=== PATIENT | male | born 1980 | race Caucasian/White ===

== ENCOUNTER 2020-02-24 10:18 | Emergency (ER) | payer OTHER ==
[~2020-02-24] VITALS: Ht 185.4 cm; Wt 92.0 kg
--- NOTE | 2020-02-24 11:18 | NUR ---
PERSONAL INJURY LITIGATION PARALEGAL: PT TO ROOM FROM LOBBY
[2020-02-24 11:29] VITALS: BP 137/97
--- NOTE | 2020-02-24 11:31 | NUR ---
PT AMBULATORY TO ROOM 11 W/ C/O DIZZINESS/LIGHTHEADEDNESS THIS AM. PT STATES HE WAS WALKING AND HE STARTED FEELING DIZZY/LIGHTHEADED AND SAT DOWN UNTIL HE FELT BETTER. NASIR LOC. PT STATES HE THEN ATTEMPTED TO GO TO WORK AND DIZZY/LIGHTHEADED THERE. NOW DENIES LIGHTHEADED/DIZZINESS. PT BS 71. STATES HE ONLY HAD TOAST THIS AM. PT HR NOTED TO BE 45-50 BUT STATES HE IS VERY ACTIVE. PT RESTING ON [facility]. [facility]. [employer] MONITORS IN PLACE.
[2020-02-24 11:48] LABS: BASOPHILS # (AUTO) 0.03 x10^3/uL (0-0.1); BASOPHILS % (AUTO) 0 % (0-1); EOSINOPHILS # (AUTO) 0.03 x10^3/uL (0-0.4); EOSINOPHILS % (AUTO) 0 % (1-7); LYMPHOCYTES # (AUTO) 1.57 x10^3/uL (1-3.4); LYMPHOCYTES % (AUTO) 25 % (22-44); MD NO; MEAN CORPUSCULAR HEMOGLOBIN 30.2 pg (27.5-34.5); MEAN CORPUSCULAR HGB CONC 34.3 g/dL (33.2-36.2); MEAN PLATELET VOLUME 12.8 fL (7.4-10.4); MONOCYTES # (AUTO) 0.36 x10^3/uL (0.2-0.8); MONOCYTES % (AUTO) 6 % (2-9); NEUTROPHILS # (AUTO) 4.34 x10^3/uL (1.8-6.8); NEUTROPHILS % (AUTO) 69 % (42-75); PLATELET COUNT 146 x10^3/uL (130-400); RED BLOOD COUNT 5.11 x10^6/uL (4.38-5.82); RED CELL DISTRIBUTION WIDTH 13.4 % (9.4-14.8)
--- NOTE | 2020-02-24 11:57 | NUR ---
REPORT GIVEN TO MELIZA SINGLETARY.
[2020-02-24 11:58] LABS: ALBUMIN 4.3 g/dL (3.4-5.0); ANION GAP 8 mmol/L (5-15); CALCIUM 9.2 mg/dL (8.5-10.1); CHLORIDE 108 mmol/L (98-107)
--- NOTE | 2020-02-24 12:04 | NUR ---
Pt given complex carb and orange juice to help elevate bg.
--- NOTE | 2020-02-24 13:29 | NUR ---
Patient/Caregiver given discharge instructions and they have confirmed that they understand the instructions. Patient ambulatory with steady gait.
== END 2020-02-24 13:31 | disposition home or self-care (01) ==
LOC: ED 12:23
DX: R55 Syncope and collapse (principal); R42 Dizziness and giddiness; E16.2 Hypoglycemia, unspecified
CPT/HCPCS: 36415; 71045; 80048; 82040; 82962; 85025; 93005; 99285